=== PATIENT | male | born 1965 | race Caucasian/White ===

== ENCOUNTER 2020-12-03 07:34 | Outpatient (REF) | payer OTHER, SELFPAY ==
[2020-12-03 11:29] LABS: Hematocrit 52.7 % (42-52); Hemoglobin 17.4 g/dl (14.0-18.0); Mean Corpuscular Hemoglobin 29.4 pg (27.0-33.0); Mean Platelet Volume 12.2 fL (9.4-12.4); Platelet Count 178 X10*3/uL (160-400); Red Blood Count 5.92 X10*6/uL (4.60-5.80); Red Cell Distribution Width 12.8 % (11.0-16.0); White Blood Count 6.7 X10*3/uL (4.8-10.8)
[2020-12-03 11:41] LABS: Appearance Urine CLEAR; Color Urine YELLOW; Glucose Urine UA NEG (NEG); Leukocyte Esterase Urine NEG (NEG); Nitrite Urine NEG (NEG); Urine Blood NEG (NEG); Urine Ketones NEG (NEG); Urine Protein NEG (NEG-TRACE)
[2020-12-03 12:14] LABS: Prostate Specific Antigen Scr 1.27 ng/mL (<0.05-4.0)
[2020-12-03 12:16] LABS: Alanine Aminotransferase 22 U/L (0-40); Albumin Level 4.8 g/dL (3.5-5.0); Alkaline Phosphatase 67 U/L (39-117); Anion Gap 13 (12-20); Aspartate Amino Transferase 20 U/L (5-37); Bilirubin Total 0.7 mg/dL (0.0-1.0); Blood Urea Nitrogen 15 mg/dL (9-16); Calcium 9.4 mg/dL (8.4-10.2); Carbon Dioxide 27 mmol/L (22-29); Chloride 103 mmol/L (96-108); Cholesterol 264 mg/dL; Estimated Glomerular Filt Rate > 60; Glucose Fasting 94 mg/dL (60-99); HDL Cholesterol 43 mg/dL; LDL Cholesterol Calculated 175 mg/dl; Potassium 4.3 mmol/L (3.3-5.1); RBC Urine 0 /HPF (0); Sodium 139 mmol/L (135-145); Total Protein 7.4 g/dL (6.5-8.0); Triglycerides 230 mg/dL; WBC Urine 0-2 /HPF (0-4)
== END 2020-12-03 07:35 | disposition home or self-care (01) ==
LOC: HO.HMGCLDS 07:34
PROVIDERS: PCP Internal Medicine; Visit Provider Internal Medicine
DX: Z00.00 Encounter for general adult medical examination without abnormal findings (principal)
CPT/HCPCS: 36415; 80053; 80061; 81001; 84153; 85027

== ENCOUNTER 2021-02-07 08:05 | Outpatient (REF) | payer OTHER, SELFPAY ==
[2021-02-07 12:18] LABS: Alanine Aminotransferase 27 U/L (0-40); Albumin Level 4.7 g/dL (3.5-5.0); Alkaline Phosphatase 69 U/L (39-117); Anion Gap 14 (12-20); Aspartate Amino Transferase 22 U/L (5-37); Bilirubin Total 0.8 mg/dL (0.0-1.0); Blood Urea Nitrogen 16 mg/dL (9-16); Calcium 9.6 mg/dL (8.4-10.2); Carbon Dioxide 27 mmol/L (22-29); Chloride 102 mmol/L (96-108); Cholesterol 243 mg/dL; Estimated Glomerular Filt Rate > 60; Glucose Fasting 83 mg/dL (60-99); HDL Cholesterol 43 mg/dL; LDL Cholesterol Calculated 169 mg/dl; Potassium 4.1 mmol/L (3.3-5.1); Sodium 139 mmol/L (135-145); Total Protein 7.2 g/dL (6.5-8.0); Triglycerides 157 mg/dL
== END 2021-02-07 08:06 | disposition home or self-care (01) ==
LOC: HO.HMGCLDS 08:05
PROVIDERS: PCP Internal Medicine; Visit Provider Internal Medicine
DX: E78.5 Hyperlipidemia, unspecified (principal); I51.7 Cardiomegaly; I10 Essential (primary) hypertension
CPT/HCPCS: 36415; 80053; 80061

== ENCOUNTER 2022-02-17 06:52 | Outpatient (REF) | payer OTHER, SELFPAY ==
[2022-02-17 11:12] LABS: Appearance Urine CLOUDY; Color Urine YELLOW; Glucose Urine UA NEG (NEG); Leukocyte Esterase Urine NEG (NEG); Nitrite Urine NEG (NEG); Specific Gravity - Urine 1.025 (1.005-1.025); Urine Blood NEG (NEG); Urine Ketones NEG (NEG); Urine Protein NEG (NEG-TRACE)
[2022-02-17 11:26] LABS: Hemoglobin 17.4 g/dl (14.0-18.0); Mean Corpuscular HGB Conc 32.8 g/dl (31.0-36.0); Mean Corpuscular Hemoglobin 29.6 pg (27.0-33.0); Mean Corpuscular Volume 90.3 fL (80.0-98.0); Mean Platelet Volume 12.2 fL (9.4-12.4); Platelet Count 190 X10*3/uL (160-400); Red Blood Count 5.87 X10*6/uL (4.60-5.80); White Blood Count 7.1 X10*3/uL (4.8-10.8)
[2022-02-17 11:32] LABS: Alanine Aminotransferase 23 U/L (0-40); Albumin Level 4.7 g/dL (3.5-5.0); Alkaline Phosphatase 64 U/L (39-117); Anion Gap 13 (12-20); Aspartate Amino Transferase 21 U/L (5-37); Bilirubin Total 0.8 mg/dL (0.0-1.0); Blood Urea Nitrogen 18 mg/dL (9-16); Calcium 9.8 mg/dL (8.4-10.2); Carbon Dioxide 25 mmol/L (22-29); Chloride 104 mmol/L (96-108); Cholesterol 260 mg/dL; Estimated Glomerular Filt Rate > 60; Glucose Fasting 100 mg/dL (60-99); HDL Cholesterol 44 mg/dL; LDL Cholesterol Calculated 184 mg/dl; Potassium 4.3 mmol/L (3.3-5.1); Sodium 138 mmol/L (135-145); Total Protein 7.4 g/dL (6.5-8.0); Triglycerides 160 mg/dL
[2022-02-17 12:13] LABS: Amorphous Sediment Urine 4+ /LPF; RBC Urine 0 /HPF (0); WBC Urine 0 /HPF (0-4)
== END 2022-02-17 06:53 | disposition home or self-care (01) ==
LOC: HO.HMGCLDS 06:52
PROVIDERS: Visit Provider Internal Medicine
DX: Z00.00 Encounter for general adult medical examination without abnormal findings (principal); I10 Essential (primary) hypertension; E78.5 Hyperlipidemia, unspecified; Z12.5 Encounter for screening for malignant neoplasm of prostate
CPT/HCPCS: 36415; 80053; 80061; 81001; 84153; 85027

== ENCOUNTER 2022-05-01 06:46 | Outpatient (REF) | payer OTHER, SELFPAY ==
[2022-05-01 11:42] LABS: Cholesterol 206 mg/dL; HDL Cholesterol 47 mg/dL; LDL Cholesterol Calculated 135 mg/dl; Triglycerides 123 mg/dL
== END 2022-05-01 06:47 | disposition home or self-care (01) ==
LOC: HO.HMGCLDS 06:46
PROVIDERS: Visit Provider Internal Medicine
DX: E78.5 Hyperlipidemia, unspecified (principal)
CPT/HCPCS: 36415; 80061

== ENCOUNTER 2023-02-12 07:06 | Outpatient (REF) | payer OTHER, SELFPAY ==
[2023-02-12 11:15] LABS: MANUAL DIFF FLAG NO
[2023-02-12 11:39] LABS: Basophils Percent Auto 0.5 % (0-2); Eosinophils Absolute Auto 0.2 X10*3/uL (0.0-0.4); Eosinophils Percent Auto 2.5 % (0-4); Hematocrit 50.2 % (42.0-52.0); Hemoglobin 16.5 g/dl (14.0-18.0); Imm Gran Abs Auto 0.03 X10*3/uL (0.00-0.03); Imm Gran Pct Auto 0.4 % (0.0-0.4); Lymphocytes Absolute Auto 1.7 X10*3/uL (1.2-4.9); Mean Corpuscular HGB Conc 32.9 g/dl (31.0-36.0); Mean Corpuscular Hemoglobin 30.1 pg (27.0-33.0); Mean Corpuscular Volume 91.4 fL (80.0-98.0); Mean Platelet Volume 12.5 fL (9.4-12.4); Monocytes Absolute Auto 0.7 X10*3/uL (0.1-1.2); Monocytes Percent Auto 8.9 % (2-11); Neutrophils Absolute Auto 5.1 x10*3/uL (2.0-8.3); Neutrophils Percent Auto 65.7 % (45-73); Platelet Count 177 X10*3/uL (160-400); Red Blood Count 5.49 X10*6/uL (4.60-5.80); Red Cell Distribution Width 13.2 % (11.0-16.0); White Blood Count 7.7 X10*3/uL (4.8-10.8)
[2023-02-12 11:39] LABS: Appearance Urine Clear; Color Urine Yellow; Glucose Urine UA Negative (Negative); Leukocyte Esterase Urine Negative (Negative); Nitrite Urine Negative (Negative); PH 7.5 (5.0-9.0); Specific Gravity - Urine 1.015 (1.005-1.025); Urine Blood Negative (Negative); Urine Ketones Negative (Negative); Urine Protein Negative (Neg-Trace)
[2023-02-12 11:44] LABS: Bacteria Urine None Seen (None Seen); Hyaline Casts Urine 0-2 /LPF (0-2); RBC Urine 0-2 /HPF (0-2); Squamous Epithelial Cell Urine 0-2 /HPF (0-2); WBC Urine 0-5 /HPF (0-5)
[2023-02-12 12:30] LABS: Alanine Aminotransferase 33 U/L (0-40); Albumin Level 4.6 g/dL (3.5-5.0); Alkaline Phosphatase 66 U/L (39-117); Anion Gap 14 (12-20); Aspartate Amino Transferase 24 U/L (5-37); Bilirubin Total 0.9 mg/dL (0.0-1.0); Blood Urea Nitrogen 13 mg/dL (9-16); Calcium 9.5 mg/dL (8.4-10.2); Carbon Dioxide 24 mmol/L (22-29); Chloride 106 mmol/L (96-108); Cholesterol 231 mg/dL; Estimated Glomerular Filt Rate > 60; Glucose Fasting 93 mg/dL (60-99); HDL Cholesterol 47 mg/dL; LDL Cholesterol Calculated 153 mg/dl; Potassium 4.3 mmol/L (3.3-5.1); Sodium 140 mmol/L (135-145); Total Protein 7.1 g/dL (6.5-8.0); Triglycerides 156 mg/dL
[2023-02-12 12:33] LABS: PSA,Total (Free>4and<10) 1.69 ng/mL (0.00-4.00)
== END 2023-02-12 07:07 | disposition home or self-care (01) ==
LOC: HO.HMGCLDS 07:06
PROVIDERS: PCP Internal Medicine; Visit Provider Internal Medicine
DX: Z00.00 Encounter for general adult medical examination without abnormal findings (principal); E78.5 Hyperlipidemia, unspecified
CPT/HCPCS: 36415; 80053; 80061; 81001; 84153; 85025

== ENCOUNTER 2023-05-08 07:22 | Outpatient (REF) | payer OTHER, SELFPAY ==
[2023-05-08 12:25] LABS: Cholesterol 159 mg/dL; HDL Cholesterol 50 mg/dL; LDL Cholesterol Calculated 89 mg/dl; Triglycerides 102 mg/dL
== END 2023-05-08 07:23 | disposition home or self-care (01) ==
LOC: HO.HMGCLDS 07:22
PROVIDERS: PCP Internal Medicine; Visit Provider Internal Medicine
DX: E78.5 Hyperlipidemia, unspecified (principal); I10 Essential (primary) hypertension
CPT/HCPCS: 36415; 80061

== ENCOUNTER 2023-08-21 06:39 | Outpatient (REF) | payer OTHER, SELFPAY ==
[2023-08-21 12:06] LABS: Alanine Aminotransferase 26 U/L (0-40); Albumin Level 4.7 g/dL (3.5-5.0); Alkaline Phosphatase 65 U/L (39-117); Anion Gap 11 (12-20); Aspartate Amino Transferase 26 U/L (5-37); Bilirubin Total 0.7 mg/dL (0.0-1.0); Blood Urea Nitrogen 16 mg/dL (9-16); Calcium 9.6 mg/dL (8.4-10.2); Carbon Dioxide 28 mmol/L (22-29); Chloride 104 mmol/L (96-108); Cholesterol 176 mg/dL (<200); Estimated Glomerular Filt Rate > 60; Glucose Fasting 98 mg/dL (60-99); HDL Cholesterol 49 mg/dL (>40); LDL Cholesterol Calculated 102 mg/dL (<100); Sodium 139 mmol/L (135-145); Total Protein 7.6 g/dL (6.5-8.0); Triglycerides 129 mg/dL (<150)
== END 2023-08-21 06:40 | disposition home or self-care (01) ==
LOC: HO.HMGCLDS 06:39
PROVIDERS: PCP Internal Medicine; Visit Provider Internal Medicine
DX: I10 Essential (primary) hypertension (principal); E78.5 Hyperlipidemia, unspecified
CPT/HCPCS: 36415; 80053; 80061

== ENCOUNTER 2023-08-24 08:33 | Outpatient (AMB) | payer OTHER, SELFPAY ==
[2023-08-24 08:38] VITALS: BP 132/80; PULSE 96; O2SAT 98; BMI 31.1
--- NOTE | 2023-08-24 08:38 | A.OFFPC_ITS ---
Vital Signs 08/24/23 08:38 Height 6 ft Weight 229 lb BMI 31.1 BP 132/80 Blood Pressure Location Rt brachial Position Sitting Pulse 96 Pulse Source Pulse Oximeter Pulse Oximetry (%) 98 Oxygen Delivery Method Room Air Intake Visit Reasons: 6 Month follow up Intake Note: Pt is here today for his 6 months f/u Allergies seafood Allergy (Unknown, Verified 08/24/23 08:39) hives Medication List - Last Reconciled 08/24/23 by Lorenza Dutta MD amlodipine-benazepril 10-40 mg 1 cap PO DAILY aspirin (Adult Low Dose Aspirin) 81 mg PO DAILY rosuvastatin (Crestor) 10 mg PO DAILY Tobacco use date assessed: 08/24/23 Dental Screening Dental Screen Date: 08/24/23 Did you have a dental visit in the last 12 months?: No Was dental information given to patient?: Patient declined HPI 6 Month follow up HPI Details Pt presents for HTN and hyperlipid, stable on meds. [facility] Medical History Hyperlipidemia Localized osteoarthritis of knee LVH (left ventricular hypertrophy) Chest pain HTN (hypertension) Annual physical exam Surgical History Hx of colonoscopy Family History Father HTN (hypertension) Mother Pancreatic cancer Sister No problems noted. Sister No problems noted. Sister No problems noted. Son No problems noted. Social History Housing: House Alcohol intake: current Alcohol intake frequency: holidays/special occasions on ly Patient Tobacco Use Status: Never used Tobacco e-Cigarette/Vaping Use: Never Used Current occupational status: unemployed Cognitive needs: No Hearing needs: No Vision needs: Yes Questionnaire Thrive Questionnaire Date Thrive assessed: 02/16/23 AUDIT C Alcohol Use Questionnaire (AUDIT-C) 1. How often do you have a drink containing alcohol?: Never Total Score: 0 NGOC-7 AMB Questionnaire NGOC-7 Date NGOC - 7 assessed: 02/16/23 Source: Developed by Drs. Robert Sierra, Vivi Alvarez, Zeferino Multani and colleagues, with an educational wan from [employer]. Review of Systems Const All systems reviewed & are unremarkable except as noted in HPI and below Reports no additional complaints Eyes Reports no additional complaints ENT Reports no additional complaints Card Reports no additional complaints Resp Reports no additional complaints GI Reports no additional complaints Physical exam (Primary Care) Vital Signs: Last Vital Signs Pulse 96 08/24/23 08:38 BP 132/80 08/24/23 08:38 Pulse Ox 98 08/24/23 08:38 Oxygen Delivery Method Room Air 08/24/23 08:38 BMI result Body Mass Index 31.1 Tobacco/Smoking Status: Tobacco use Status Tobacco use date assessed 08/24/23 08/24/23 08:41 Patient Tobacco Use Status Never used Tobacco 08/24/23 08:41 e-Cigarette/Vaping Use Never Used 08/24/23 08:41 Thrive Assessment: Date of Thrive Assessment Date Thrive assessed 02/16/23 08/24/23 08:41 Const General: no acute distress HENMT Head: Yes normal to inspection Ears: hearing grossly normal bilaterally General nose exam: Normal external nose present Face and sinus: Yes normal facial exam Mouth: Normal oral and palatal mucosa present Throat: Yes posterior oropharynx normal Eyes General: appearance normal, both eyes and all related structures Neck Neck: Yes no lymphadenopathy and Yes supple Resp Effort & Inspection: normal respiratory effort Auscultation: clear to auscultation bilaterally Cardio Rhythm: regular rhythm Heart sounds: S1 normal heart sound present and S2 normal heart sound present GI Inspection: Yes normal to inspection Palpation (GI): Soft to palpation Percussion: Yes normal to percussion Auscultation: normal bowel sounds Assessment and Plan Assessment & Plan (1) Hyperlipidemia: Code(s): E78.5 - Hyperlipidemia, unspecified Plan: cont statin (2) HTN (hypertension): Code(s): I10 - Essential (primary) hypertension Plan: cont Lotrel, PE in 6 mnths Orders: Orders Comprehensive [place]. Panel Fast 6 Months E78.5 - Hyperlipidemia, unspecified, I10 - Essential (primary) hypertension Lipid Panel 6 Months E78.5 - Hyperlipidemia, unspecified, I10 - Essential (primary) hypertension Complete Blood Count Auto Diff 6 Months E78.5 - Hyperlipidemia, unspecified, I10 - Essential (primary) hypertension PSA,Total (Free>4and<10) 6 Months E78.5 - Hyperlipidemia, unspecified, I10 - Essential (primary) hypertension Coding Level of Care Code Est Pt Level 4 (68808) Diagnoses Hyperlipidemia E78.5 HTN (hypertension) I10
== END 2023-08-24 08:56 | disposition home or self-care (01) ==
PROVIDERS: Visit Provider Internal Medicine
DX: E78.5 Hyperlipidemia, unspecified (principal); I10 Essential (primary) hypertension; Z98.890 Other specified postprocedural states
CPT/HCPCS: 99214

== ENCOUNTER 2024-02-18 06:40 | Outpatient (REF) | payer OTHER, SELFPAY ==
[2024-02-18 10:13] LABS: MANUAL DIFF FLAG NO
[2024-02-18 10:30] LABS: Basophils Percent Auto 0.4 % (0-2); Eosinophils Absolute Auto 0.1 X10*3/uL (0.0-0.4); Eosinophils Percent Auto 2.1 % (0-4); Hematocrit 51.8 % (42.0-52.0); Hemoglobin 17.1 g/dl (14.0-18.0); Imm Gran Abs Auto 0.02 X10*3/uL (0.00-0.03); Imm Gran Pct Auto 0.3 % (0.0-0.4); Lymphocytes Absolute Auto 1.6 X10*3/uL (1.2-4.9); Lymphocytes Percent Auto 23.1 % (20-40); Mean Corpuscular Hemoglobin 30.1 pg (27.0-33.0); Mean Corpuscular Volume 91.2 fL (80.0-98.0); Mean Platelet Volume 11.8 fL (9.4-12.4); Monocytes Absolute Auto 0.6 X10*3/uL (0.1-1.2); Monocytes Percent Auto 9.2 % (2-11); Neutrophils Absolute Auto 4.4 x10*3/uL (2.0-8.3); Neutrophils Percent Auto 64.9 % (45-73); Platelet Count 174 X10*3/uL (160-400); Red Blood Count 5.68 X10*6/uL (4.60-5.80); Red Cell Distribution Width 13.2 % (11.0-16.0); White Blood Count 6.7 X10*3/uL (4.8-10.8)
[2024-02-18 11:10] LABS: Alanine Aminotransferase 27 U/L (0-40); Albumin Level 4.7 g/dL (3.5-5.0); Alkaline Phosphatase 68 U/L (39-117); Anion Gap 14 (12-20); Aspartate Amino Transferase 23 U/L (5-37); Bilirubin Total 0.8 mg/dL (0.0-1.0); Blood Urea Nitrogen 15 mg/dL (9-16); Calcium 9.6 mg/dL (8.4-10.2); Carbon Dioxide 26 mmol/L (22-29); Chloride 106 mmol/L (96-108); Cholesterol 161 mg/dL (<200); Estimated Glomerular Filt Rate > 60; Glucose Fasting 97 mg/dL (60-99); HDL Cholesterol 51 mg/dL (>40); LDL Cholesterol Calculated 91 mg/dL (<100); Potassium 4.4 mmol/L (3.3-5.1); Sodium 142 mmol/L (135-145); Total Protein 7.5 g/dL (6.5-8.0); Triglycerides 98 mg/dL (<150)
[2024-02-18 11:11] LABS: PSA,Total (Free>4and<10) 1.43 ng/mL (0.00-4.00)
== END 2024-02-18 06:41 | disposition home or self-care (01) ==
LOC: HO.HMGCLDS 06:40
PROVIDERS: PCP Internal Medicine; Visit Provider Internal Medicine
DX: E78.5 Hyperlipidemia, unspecified (principal); I10 Essential (primary) hypertension
CPT/HCPCS: 36415; 80053; 80061; 84153; 85025

== ENCOUNTER 2024-02-22 07:52 | Outpatient (AMB) | payer OTHER, SELFPAY ==
[2024-02-22 08:07] VITALS: BP 108/66; PULSE 91; O2SAT 95; BMI 30.6
--- NOTE | 2024-02-22 08:07 | MHC.PC.OV ---
Vital Signs 02/22/24 08:07 Height 6 ft Weight 226 lb BMI 30.6 BP 108/66 Blood Pressure Location Rt brachial Position Sitting Pulse 91 Pulse Source Pulse Oximeter Pulse Oximetry (%) 95 Oxygen Delivery Method Room Air Intake Visit Reasons: Annual PE Intake Note: Pt is here today for PE. Allergies seafood Allergy (Unknown, Verified 02/22/24 08:10) hives Medication List - Last Reconciled 02/22/24 by Lorenza Dutta MD amlodipine-benazepril 10-40 mg 1 cap PO DAILY aspirin (Adult Low Dose Aspirin) 81 mg PO DAILY rosuvastatin (Crestor) 10 mg PO DAILY Tobacco use date assessed: 02/22/24 Dental Screening Dental Screen Date: 02/22/24 Did you have a dental visit in the last 12 months?: No Did you have a dental problem in the last 6 months where you did not have access to dental care?: Yes Was dental information given to patient?: Yes HPI Annual PE HPI Details Pt presents for PE. PFSH Medical History Hyperlipidemia Localized osteoarthritis of knee LVH (left ventricular hypertrophy) Chest pain HTN (hypertension) Annual physical exam Surgical History Hx of colonoscopy Family History Father HTN (hypertension) Mother Pancreatic cancer Sister No problems noted. Sister No problems noted. Sister No problems noted. Son No problems noted. Social History Housing: House Alcohol intake: current Alcohol intake frequency: holidays/special occasions only Patient Tobacco Use Status: Never used Tobacco e-Cigarette/Vaping Use: Never Used service: No Current occupational status: unemployed Cognitive needs: No Hearing needs: No Vision needs: Yes Questionnaire PHQ-9 Over the last 2 weeks, how often have you been bothered by any of the following problems? 1. Little interest or pleasure in doing things: several days 2. Feeling down, depressed, or hopeless: not at all 3. Trouble falling or staying asleep, or sleeping too much: several days 4. Feeling tired or having little energy: several days 5. Poor appetite or overeating: not at all 6. Feeling bad about yourself - or that you are a failure or have let yourself or your family down: not at all 7. Trouble concentrating on things, such as reading the newspaper or watching television: not at all 8. Moving or speaking so slowly that other people could have noticed. Or the opposite - being so fidgety or restless that you have been moving around a lot more than usual: not at all 9. Thoughts that you would be better off or of hurting yourself in some way: not at all Total score: 3 Depression Screening Interpretation: Negative Depression Screening Done: Yes Source: Developed by Drs. Robert Sierra, Vivi Alvarez, Zeferino Multani and colleagues, with an educational wan from [employer]. Thrive Questionnaire Date Thrive assessed: 02/22/24 I am a: Patient What is your living situation today?: I have a steady place to live Within the past 12 months, did the food you bought not last and you didn't have the money to get more?: Never true Within the past 12 months, did you worry whether your food would run out before you got money to buy more?: Never true Do you have trouble paying for medicines?: No Do you have trouble getting transportation to medical appointments?: No Do you have trouble paying your heating and electricity bill?: No Do you have trouble taking care of your child, family member or friend?: No Do you have trouble with day-to-day activities such as bathing, preparing meals, shopping, managing finances, etc.?: No Are you currently unemployed and looking for a job?: No Are you interested in more education?: No Please select the resources that you would like help with: None THRIVE Score: 0 AUDIT C Alcohol Use Questionnaire (AUDIT-C) 1. How often do you have a drink containing alcohol?: Never 3. How often do you have six or more drinks on one occasion?: Never Total Score: 0 NGOC-7 AMB Questionnaire NGOC-7 Date NGOC - 7 assessed: 02/22/24 Feeling nervous, anxious, or on edge: 2 = More than half the days Not being able to stop or control worryin = Not at all Worrying too much about different things: 1 = Several days Trouble relaxin = Several days Being so restless that it is hard to sit still: 1 = Several days Becoming easily annoyed or irritable: 1 = Several days Feeling afraid as if something awful might happen: 1 = Several days Total NGOC-7 score (0-4 normal; 5-9 mild; 10-14 moderate; 15-21 severe): 7 Source: Developed by Drs. Robert Sierra, Vivi Alvarez, Zeferino Multani and colleagues, with an educational wan from [employer]. Review of Systems Const All systems reviewed & are unremarkable except as noted in HPI and below Reports no additional complaints Eyes Reports no additional complaints ENT Reports no additional complaints Card Reports no additional complaints Resp Reports no additional complaints GI Reports no additional complaints Physical exam (Primary Care) Vital Signs: Last Vital Signs Pulse 91 02/22/24 08:07 BP 108/66 02/22/24 08:07 Pulse Ox 95 02/22/24 08:07 Oxygen Delivery Method Room Air 02/22/24 08:07 BMI result Body Mass Index 30.6 Tobacco/Smoking Status: Tobacco use Status Tobacco use date assessed 02/22/24 02/22/24 08:12 Patient Tobacco Use Status Never used Tobacco 02/22/24 08:12 e-Cigarette/Vaping Use Never Used 02/22/24 08:08 PHQ-9: PHQ-9 Score PHQ-9: Total score 3 02/22/24 08:14 Depression Screening Interpretation: Negative Thrive Assessment: Date of Thrive Assessment Date Thrive assessed 02/22/24 02/22/24 08:14 Const General: no acute distress HENMT Head: Yes normal to inspection Ears: hearing grossly normal bilaterally General nose exam: Normal external nose present Face and sinus: Yes normal facial exam Mouth: Normal oral and palatal mucosa present Throat: Yes posterior oropharynx normal Eyes General: appearance normal, both eyes and all related structures Neck Neck: Yes no lymphadenopathy Resp Effort & Inspection: normal respiratory effort Auscultation: clear to auscultation bilaterally Cardio Rhythm: regular rhythm Heart sounds: S1 normal heart sound present and S2 normal heart sound present GI Inspection: Yes normal to inspection Palpation (GI): Soft to palpation Percussion: Yes normal to percussion Auscultation: normal bowel sounds Assessment and Plan Assessment & Plan (1) Hyperlipidemia: Code(s): E78.5 - Hyperlipidemia, unspecified Plan: Continue statin (2) HTN (hypertension): Code(s): I10 - Essential (primary) hypertension Plan: Continue current medications (3) Annual physical exam: Code(s): Z00.00 - Encounter for general adult medical examination without abnormal findings Plan: Well-balanced diet regular physical activity discussed with the patient physical in 1 year with a fasting labs before Orders: Orders Comprehensive [place]. Panel Fast 1 Year E78.5 - Hyperlipidemia, unspecified, I10 - Essential (primary) hypertension, Z00.00 - Encounter for general adult medical examination without abnormal findings Lipid Panel 1 Year E78.5 - Hyperlipidemia, unspecified, I10 - Essential (primary) hypertension, Z00.00 - Encounter for general adult medical examination without abnormal findings Complete Blood Count Auto Diff 1 Year E78.5 - Hyperlipidemia, unspecified, I10 - Essential (primary) hypertension, Z00.00 - Encounter for general adult medical examination without abnormal findings PSA,Total (Free>4and<10) 1 Year E78.5 - Hyperlipidemia, unspecified, I10 - Essential (primary) hypertension, Z00.00 - Encounter for general adult medical examination without abnormal findings UA w Microscopic 1 Year E78.5 - Hyperlipidemia, unspecified, I10 - Essential (primary) hypertension, Z00.00 - Encounter for general adult medical examination without abnormal findings Medications: Refilled amlodipine-benazepril 10-40 mg 1 cap PO DAILY 90 caps 3RF I10 - Essential (primary) hypertension rosuvastatin (Crestor) 10 mg PO DAILY 90 tabs 3RF Coding Level of Care Code Est Pt Prev Care 40-64y(44931) Diagnoses Hyperlipidemia E78.5 HTN (hypertension) I10 Annual physical exam Z00.00
== END 2024-02-22 08:44 | disposition home or self-care (01) ==
PROVIDERS: Visit Provider Internal Medicine
DX: Z00.00 Encounter for general adult medical examination without abnormal findings (principal); E78.5 Hyperlipidemia, unspecified; I10 Essential (primary) hypertension
CPT/HCPCS: 99396

== ENCOUNTER 2025-03-16 06:27 | Outpatient (REF) | payer OTHER, SELFPAY ==
[2025-03-16 10:12] LABS: MANUAL DIFF FLAG NO
[2025-03-16 10:24] LABS: Basophils Percent Auto 0.6 % (0-2); Eosinophils Absolute Auto 0.1 X10*3/uL (0.0-0.4); Eosinophils Percent Auto 2.1 % (0-4); Hematocrit 48.7 % (42.0-52.0); Hemoglobin 16.1 g/dl (14.0-18.0); Imm Gran Abs Auto 0.02 X10*3/uL (0.00-0.03); Imm Gran Pct Auto 0.3 % (0.0-0.4); Lymphocytes Absolute Auto 1.6 X10*3/uL (1.2-4.9); Lymphocytes Percent Auto 25.1 % (20-40); Mean Corpuscular HGB Conc 33.1 g/dl (31.0-36.0); Mean Corpuscular Hemoglobin 30.1 pg (27.0-33.0); Mean Corpuscular Volume 91.2 fL (80.0-98.0); Mean Platelet Volume 11.8 fL (9.4-12.4); Monocytes Absolute Auto 0.6 X10*3/uL (0.1-1.2); Monocytes Percent Auto 8.4 % (2-11); Neutrophils Absolute Auto 4.1 x10*3/uL (2.0-8.3); Neutrophils Percent Auto 63.5 % (45-73); Platelet Count 155 X10*3/uL (160-400); Red Blood Count 5.34 X10*6/uL (4.60-5.80); Red Cell Distribution Width 13.2 % (11.0-16.0); White Blood Count 6.5 X10*3/uL (4.8-10.8)
[2025-03-16 10:36] LABS: Alanine Aminotransferase 36 U/L (0-40); Albumin Level 4.7 g/dL (3.5-5.0); Alkaline Phosphatase 63 U/L (39-117); Anion Gap 11 (12-20); Aspartate Amino Transferase 31 U/L (5-37); Bilirubin Total 0.7 mg/dL (0.0-1.0); Blood Urea Nitrogen 16 mg/dL (9-16); Calcium 9.2 mg/dL (8.4-10.2); Carbon Dioxide 27 mmol/L (22-29); Chloride 106 mmol/L (96-108); Cholesterol 168 mg/dL (<200); Estimated Glomerular Filt Rate > 60; Glucose Fasting 97 mg/dL (60-99); HDL Cholesterol 50 mg/dL (>40); LDL Cholesterol Calculated 98 mg/dL (<100); Potassium 3.9 mmol/L (3.3-5.1); Sodium 140 mmol/L (135-145); Total Protein 7.1 g/dL (6.5-8.0); Triglycerides 101 mg/dL (<150)
[2025-03-16 10:46] LABS: Appearance Urine Clear; Color Urine Yellow; Glucose Urine UA Negative (Negative); Leukocyte Esterase Urine Negative (Negative); Nitrite Urine Negative (Negative); Urine Blood Negative (Negative); Urine Ketones Negative (Negative); Urine Protein Negative (Neg-Trace)
[2025-03-16 10:54] LABS: Bacteria Urine None Seen (None Seen); Hyaline Casts Urine 0-2 /LPF (0-2); RBC Urine 0-2 /HPF (0-2); Squamous Epithelial Cell Urine 0-2 /HPF (0-2); WBC Urine 0-5 /HPF (0-5)
[2025-03-16 10:55] LABS: PSA,Total (Free>4and<10) 2.02 ng/mL (0.00-4.00)
== END 2025-03-16 06:28 | disposition home or self-care (01) ==
LOC: HO.HMGCLDS 06:27
PROVIDERS: PCP Internal Medicine; Visit Provider Internal Medicine
DX: Z00.00 Encounter for general adult medical examination without abnormal findings (principal); E78.5 Hyperlipidemia, unspecified; I10 Essential (primary) hypertension
CPT/HCPCS: 36415; 80053; 80061; 81001; 84153; 85025

== ENCOUNTER 2025-03-23 08:26 | Outpatient (AMB) | payer OTHER, SELFPAY ==
[2025-03-23 08:27] VITALS: BP 122/78; PULSE 87; RESP 18; TEMP 36.7; O2SAT 98; BMI 30.5
--- NOTE | 2025-03-23 08:27 | MHC.PC.OV ---
Vital Signs 03/23/25 08:27 Height 6 ft Weight 225 lb BMI 30.5 BP 122/78 Blood Pressure Location Lt brachial Position Sitting Respiration 18 Pulse 87 Pulse Source Pulse Oximeter Temp 98.1 F Temp Source Oral Pulse Oximetry (%) 98 Oxygen Delivery Method Room Air Intake Visit Reasons: Annual PE Intake Note: Pt is here today for PE. Allergies seafood Allergy (Unknown, Verified 03/23/25 08:30) hives Medication List - Last Reconciled 03/23/25 by Lorenza Dutta MD amlodipine-benazepril 10-40 mg 1 cap PO DAILY aspirin (Adult Low Dose Aspirin) 81 mg PO DAILY rosuvastatin (Crestor) 10 mg PO DAILY Tobacco use date assessed: 03/23/25 Dental Screening Dental Screen Date: 03/23/25 Did you have a dental visit in the last 12 months?: Yes Did you have a dental problem in the last 6 months where you did not have access to dental care?: No Was dental information given to patient?: Patient has dentist [facility] Medical History Hyperlipidemia Localized osteoarthritis of knee LVH (left ventricular hypertrophy) Chest pain HTN (hypertension) Annual physical exam Surgical History Hx of colonoscopy Family History Father HTN (hypertension) Mother Pancreatic cancer Sister No problems noted. Sister No problems noted. Sister No problems noted. Son No problems noted. Social History Housing: House Alcohol intake: current Alcohol intake frequency: holidays/special occasions only Patient Tobacco Use Status: Never used Tobacco e-Cigarette/Vaping Use: Never Used service: No Current occupational status: unemployed Cognitive needs: No Hearing needs: No Vision needs: Yes Questionnaire PHQ-9 Over the last 2 weeks, how often have you been bothered by any of the following problems? 1. Little interest or pleasure in doing things: not at all 2. Feeling down, depressed, or hopeless: not at all 3. Trouble falling or staying asleep, or sleeping too much: not at all 4. Feeling tired or having little energy: not at all 5. Poor appetite or overeating: not at all 6. Feeling bad about yourself - or that you are a failure or have let yourself or your family down: not at all 7. Trouble concentrating on things, such as reading the newspaper or watching television: not at all 8. Moving or speaking so slowly that other people could have noticed. Or the opposite - being so fidgety or restless that you have been moving around a lot more than usual: not at all 9. Thoughts that you would be better off or of hurting yourself in some way: not at all Total score: 0 Depression Screening Interpretation: Negative Depression Screening Done: Yes 57234 - PHQ-9 Billing: Yes Source: Developed by Drs. Robert Sierra, Vivi Alvarez, Zeferino Multani and colleagues, with an educational wan from [employer]. Thrive Questionnaire Date Thrive assessed: 03/23/25 I am a: Patient What is your living situation today?: I choose not to answer this question Within the past 12 months, did the food you bought not last and you didn't have the money to get more?: I choose not to answer this question Within the past 12 months, did you worry whether your food would run out before you got money to buy more?: I choose not to answer this question Do you have trouble paying for medicines?: I choose not to answer this question Do you have trouble getting transportation to medical appointments?: I choose not to answer this question Do you have trouble paying your heating and electricity bill?: I choose not to answer this question Do you have trouble taking care of your child, family member or friend?: I choose not to answer this question Do you have trouble with day-to-day activities such as bathing, preparing meals, shopping, managing finances, etc.?: I choose not to answer this question Are you currently unemployed and looking for a job?: I choose not to answer this question Are you interested in more education?: I choose not to answer this question Please select the resources that you would like help with: None Currently or been in a relationship where the following occur: I choose not to answer THRIVE Score: 0 AUDIT C Alcohol Use Questionnaire (AUDIT-C) 1. How often do you have a drink containing alcohol?: Monthly or less 2. How many drinks containing alcohol do you have on a typical day when you are drinking?: 1 or 2 3. How often do you have six or more drinks on one occasion?: Never Total Score: 1 NGOC-7 AMB Questionnaire NGOC-7 Date NGOC - 7 assessed: 03/23/25 Feeling nervous, anxious, or on edge: 1 = Several days Not being able to stop or control worryin = Not at all Worrying too much about different things: 0 = Not at all Trouble relaxin = Not at all Being so restless that it is hard to sit still: 0 = Not at all Becoming easily annoyed or irritable: 1 = Several days Feeling afraid as if something awful might happen: 0 = Not at all Total NGOC-7 score (0-4 normal; 5-9 mild; 10-14 moderate; 15-21 severe): 2 Source: Developed by Drs. Robert Sierra, Vivi Alvarez, Zeferino Multani and colleagues, with an educational wan from [employer]. NGOC-7 Assessment Billing NGOC-7 Assessment Tool: NGOC-7 Assessment 52366 Review of Systems Const All systems reviewed & are unremarkable except as noted in HPI and below Eyes Reports no additional complaints ENT Reports no additional complaints Card Reports no additional complaints Resp Reports no additional complaints GI Reports no additional complaints Reports no additional complaints Physical exam (Primary Care) Vital Signs: Last Vital Signs Temp 98.1 F 03/23/25 08:27 Pulse 87 03/23/25 08:27 Resp 18 03/23/25 08:27 BP 122/78 03/23/25 08:27 Pulse Ox 98 03/23/25 08:27 Oxygen Delivery Method Room Air 03/23/25 08:27 BMI result Body Mass Index 30.5 Tobacco/Smoking Status: Tobacco use Status Tobacco use date assessed 03/23/25 03/23/25 08:36 Patient Tobacco Use Status Never used Tobacco 03/23/25 08:36 e-Cigarette/Vaping Use Never Used 03/23/25 08:36 PHQ-9: PHQ-9 Score PHQ-9: Total score 0 03/23/25 08:36 Depression Screening Interpretation: Negative Thrive Assessment: Date of Thrive Assessment Date Thrive assessed 03/23/25 03/23/25 08:36 Currently or been in a relationship where the following occur: I choose not to answer Const General: no acute distress HENMT Head: Yes normal to inspection Ears: hearing grossly normal bilaterally Mouth: Normal oral and palatal mucosa present Eyes General: appearance normal, both eyes and all related structures Neck Neck: Yes no lymphadenopathy and Yes supple Resp Effort & Inspection: normal respiratory effort Auscultation: clear to auscultation bilaterally Cardio Rhythm: regular rhythm Heart sounds: S1 normal heart sound present and S2 normal heart sound present GI Inspection: Yes normal to inspection Palpation (GI): Soft to palpation Percussion: Yes normal to percussion Auscultation: normal bowel sounds Coding Level of Care Code Est Pt Prev Care 40-64y(18505) Diagnoses HTN (hypertension) I10 Annual physical exam Z00.00 Hyperlipidemia E78.5 Additional Codes NGOC-7 Assessment Billing - NGOC-7 Assessment Tool: NGOC-7 Assessment 43379 ([id number]) PHQ-9 - 10881 - PHQ-9 Billing: Yes ([id number]) Assessment & Plan Assessment & Plan (1) HTN (hypertension): Code(s): I10 - Essential (primary) hypertension Category: Medical Plan: Continue current medications (2) Annual physical exam: Code(s): Z00.00 - Encounter for general adult medical examination without abnormal findings Category: Medical Plan: Well-balanced diet regular physical activity discussed with the patient. He is up-to-date with the colonoscopy. (3) Hyperlipidemia: Code(s): E78.5 - Hyperlipidemia, unspecified Category: Medical Plan: Continue Crestor Medications: Refilled amlodipine-benazepril 10-40 mg 1 cap PO DAILY 90 caps 3RF I10 - Essential (primary) hypertension rosuvastatin (Crestor) 10 mg PO DAILY 90 tabs 3RF
== END 2025-03-23 09:13 | disposition home or self-care (01) ==
LOC: HO.HMCC 08:26
PROVIDERS: PCP Internal Medicine; Visit Provider Internal Medicine
DX: I10 Essential (primary) hypertension (principal); Z00.00 Encounter for general adult medical examination without abnormal findings; E78.5 Hyperlipidemia, unspecified

== ENCOUNTER → 2025-03-23 08:26 | Outpatient (BNVA) | payer OTHER, SELFPAY | PROVIDERS: PCP Internal Medicine; Visit Provider Internal Medicine | DX: Z00.00 Encounter for general adult medical examination without abnormal findings (principal); I10 Essential (primary) hypertension; E78.5 Hyperlipidemia, unspecified | CPT/HCPCS: 96127; 99396 ==

== ENCOUNTER 2025-06-18 05:11 | Emergency (ER) | payer OTHER, SELFPAY ==
[2025-06-18 05:13] VITALS: BP 144/76; PULSE 88; RESP 20; TEMP 36.3; O2SAT 97; BMI 30.5
--- NOTE | 2025-06-18 05:29 | ED_ITS ---
HPI - General Adult General Chief complaint: Skin/Abscess/Foreign Body Stated complaint: bee sting left hand Time Seen by Provider: 06/18/25 05:20 Related Data Home Medications ?Medication ?Instructions ?Recorded ?Confirmed aspirin 81 mg tablet,delayed 81 mg PO DAILY 02/16/23 0 03/23/25 release (Adult Low Dose Aspirin) Previous Rx's ?Medication ?Instructions ?Recorded amlodipine 10 mg-benazepril 40 mg 1 cap PO DAILY #90 c aps 03/23/25 capsule rosuvastatin 10 mg tablet (Crestor) 10 mg PO DAILY #90 tabs 03/23/25 famotidine 40 mg tablet 40 mg PO DAILY #5 tabs 06/18 loratadine 10 mg tablet 10 mg PO DAILY PRN allergic 06/18/25 symptoms #5 tabs Allergies Allergy/AdvReac Type Severity Reaction Status Date / Time seafood Allergy Unknown hives Verified 06/18/25 05:15 Review of Systems Review of Systems: Yes all other systems are reviewed and are negative [facility] Past Medical History Medical History Hyperlipidemia Localized osteoarthritis of knee LVH (left ventricular hypertrophy) Chest pain HTN (hypertension) Annual physical exam Surgical History Hx of colonoscopy Family History Family History Father HTN (hypertension) Mother Pancreatic cancer Sister No problems noted. Sister No problems noted. Sister No problems noted. Son No problems noted. Social History Social History Housing: House Alcohol intake: current Alcohol intake frequency: holidays/special occasions only Patient Tobacco Use Status: Never used Tobacco Smoked in Last 30 Days: No e-Cigarette/Vaping Use: Never Used Use of substances other than those prescribed or required for medical reasons: No Advance Directives: No Advance Directives Information Provided: Yes service: No Current occupational status: unemployed Cognitive needs: No Hearing needs: No Vision needs: Yes Physical Exam ED Vital Signs: Vital Signs - 24 hr 06/18/25 05:13 06/18/25 05:58 Temperature 97.3 F 97.3 F Pulse Rate 88 88 Respiratory Rate 20 20 Blood Pressure 144/76 H 144/76 H Pulse Oximetry 97 97 Oxygen Delivery Method Room Air Room Air BMI result Body Mass Index 30.5 Const Other: The patient is awake, alert, pleasant, cooperative. He does not appear in overt distress. HENMT Other: The face is symmetrical. ?Mucous membranes moist. Eyes Other: Pupils are round equal, conjunctivae are clear, extraocular movements intact Neck Neck: Yes normal visual inspection and Yes full ROM Resp Effort & Inspection: normal respiratory effort Auscultation: clear to auscultation bilaterally Cardio Rate: regular rate Rhythm: regular rhythm Heart sounds: S1 normal heart sound present and S2 normal heart sound present Skin Other: There is some mild generalized swelling of the left ring finger. There is some injection to the skin on the ulnar side of the finger that the patient indicates was the site of the actual bee sting. There is some mild erythema to the dorsum of the left hand. There was no lymphangitis. Neuro Other: The patient is awake, alert, pleasant, cooperative. Cranial nerves are grossly intact. Mental status is normal. He has intact strength and sensation in his extremities. Extrem Other: There is some generalized swelling to the left ring finger. He is able to flex and extend the finger without significant apparent discomfort although the generalized edema to the finger limits full range of motion of the finger. He does not seem to have any focal tenderness along the course of the finger in any point. No significant tenderness along the flexor tendon. There is some mild erythema to the dorsum of the left hand but he can move the hand and the wrist well. Medications Administered Discontinued Medications Generic Name Dose Route Start Last Admin Trade Name Freq PRN Reason Stop Dose Admin Dexamethasone 10 mg 06/18/25 05:28 06/18/25 05:58 Dexamethasone 2 Mg Tablet PO 06/18/25 05:29 10 mg ONCE ONE Administration Famotidine 40 mg 06/18/25 05:28 06/18/25 05:58 Famotidine 20 Mg Tablet PO 06/18/25 05:29 40 mg ONCE ONE Administration Loratadine 10 mg 06/18/25 05:28 06/18/25 05:58 Loratadine 10 Mg Tablet PO 06/18/25 05:29 10 mg ONCE ONE Administration Medical Decision Making Medical Decision Making MDM Narrative: The patient is a 60-year-old male who presents with redness and swelling to the left ring finger in the left hand generally that seems to has been the result of a bee sting that occurred 2 days ago on Sunday, less than 48 hours ago. Clinically I think the patient has physical exam is much more suggestive of a persistent allergic reaction rather than a superinfection of a bee sting. He does not have any findings to suggest any surgical process in the hand. I do not see an indication for antibiotics. The patient was given a single dose of dexamethasone as a 1 time dose of steroid medication. He was also given a dose of loratadine and famotidine. He is prescribed loratadine and famotidine which you may use daily as needed for the next few days. Otherwise my expectation is that this reaction should gradually improve. He should keep the hand elevated. If the hand seems to be getting worse he should return to the emergency room. Discharge Plan Discharge Clinical Impression: Local reaction to hymenoptera sting Patient Disposition: Home, Self-Care Instructions: Insect Bite or Sting (ED) Additional Instructions: I think the swelling and redness to your left hand is a result of a localized allergic reaction. I do not think this is a case of an infected bee sting. You were given a dose of a steroid medication, dexamethasone. This is a 1 time dose of steroid medications. My hope is that this will help speed the resolution of this local reaction. Additionally you were given a dose of loratadine and famotidine, antihistamine medications that might also help reduce the symptoms you are experiencing. I have sent a prescription for loratadine and famotidine (antihistamine medications) which you may use once a day as needed if you have ongoing symptoms. Otherwise please rest the hand and keep it elevated. If you have worsening symptoms please return to the emergency room for another evaluation. Prescriptions: New loratadine 10 mg tablet 10 mg PO DAILY PRN (Reason: allergic symptoms) Qty: 5 0RF famotidine 40 mg tablet 40 mg PO DAILY Qty: 5 0RF No Action aspirin [Adult Low Dose Aspirin] 81 mg tablet,delayed release (DR/EC) 81 mg PO DAILY amlodipine-benazepril 10-40 mg capsule 1 cap PO DAILY Qty: 90 3RF rosuvastatin [Crestor] 10 mg tablet 10 mg PO DAILY Qty: 90 3RF Interventions: ED Discharge Assessment Last Done: 06/18/25 05:58 Discharge Date/Time: 06/18/25 06:30 Print Language: Swedish
--- OUTSIDE RECORDS SUMMARY | 2025-06-18 05:40 | XMS_ITS | Patient Health Record ---
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 Primary Care Provider Inés Walter Mckeon Jr Unavailable [phone] Reason For Referral No Information Medications Medication SIG (Take, Route, Frequency, Duration) Notes Start Date End Date Status Colyte with Flavor Packs 240 GM As directed Orally Over the specified time. for 1 day(s) Active Pravastatin Sodium 10 MG 1 TABLET ONCE A DAY ORALLY 30 DAY(S) Oral for 30 Active Lisinopril 20 MG TAKE 1 TAB BY MOUTH DAILY Oral for 30 Active Social History Tobacco Use: Social History Observation Description Date Details (start date - stop date) Never Smoker NA - NA Tobacco Use/Smoking Question Answer Notes Patient is a nonsmoker Alcohol Screen Question Answer Notes Did you have a drink contain ing alcohol in the past year? Yes How often did you have a dri nk containing alcohol in the past year? Monthly or less (1 point) How many drinks did you have on a typical day when you were drinking in the past year? 1 or 2 drinks (0 point) How often did you have 6 or more drinks on one occasion in the past year? Never (0 point) Points 1 Interpretation Negative Problems Problem Type SNOMED Code ICD Code Onset Dates Problem Status W/U Status Risk Notes Problem 782012724 Colon cancer screening (Z12.11) Active confirmed Problem 67713599 Encounter for other preprocedural examination (Z01.818) Active confirmed Plan Of Treatment Future Test Test Name Order Date COLONOSCOPY 09/21/2017 Insurance Providers Payer Name Payer Address Payer Phone Subscriber Number Group Number Insured Name Patient Relationship to Insured Coverage Start Date Coverage End Date [employer] [address] [place] [phone] [id number] JOSE ARELLANO Self - patient is the insured Medical (General) History Medical History History ICD Code hypertension elevated cholesterol
[2025-06-18 05:58] VITALS: BP 144/76; PULSE 88; RESP 20; TEMP 36.3; O2SAT 97
== END 2025-06-18 06:30 | disposition home or self-care (01) ==
PROVIDERS: Emergency Provider Emergency Medicine; PCP Internal Medicine
DX: T63.441A Toxic effect of venom of bees, accidental (unintentional), initial encounter (principal)
CPT/HCPCS: 99283; 99284; J8540